=== PATIENT | female | born 2000 | race Caucasian/White ===

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

== ENCOUNTER 2019-02-07 11:26 | Emergency (ER) | payer OTHER ==
[2019-02-07 12:02] VITALS: BP 141/86
--- NOTE | 2019-02-07 12:18 | UC ---
Respiratory Complaint HPI - HPI Summary HPI Summary: Productive cough for 3 weeks, started as sinus symptoms. - History of Current Complaint Chief Complaint: UCRespiratory Stated Complaint: COUGH, Time Seen by Provider: 02/07/19 11:28 Hx Obtained From: Patient Hx Last Menstrual Period: 01/13/19 ?: No - Attempting to conceive Onset/Duration: Gradual Onset, Lasting Weeks Timing: Intermittent Episodes Severity Initially: Moderate Severity Currently: Mild Pain Intensity: 4 Character: Cough: Productive - yellow sputum Alleviating Factors: OTC Meds Associated Signs And Symptoms: Positive: Wheezing - History of asthma symptoms when ill, URI, Nasal Congestion, Sinus Discomfort - Allergies/Home Medications Allergies/Adverse Reactions: Allergies Allergy/AdvReac Type Severity Reaction Status Date / Time diphenhydramine Allergy See Comment Verified 02/07/19 12:02 ibuprofen Allergy See Comment Verified 02/07/19 12:02 ketorolac [From Toradol] Allergy Altered Verified 02/07/19 12:02 Mental Status morphine Allergy Hallucinati Verified 02/07/19 12:02 ons prednisone Allergy Altered Verified 02/07/19 12:02 Mental Status PMH/Surg Hx/FS Hx/Imm Hx Previously Healthy: Yes - Surgical History Surgical History: Yes Surgery Procedure, Year, and Place: right foot surgeryx2 2015. Endometriosis/cystx2. PARTIAL SALPINGECTOMY--LEFT - Family History Known Family History: Positive: Cardiac Disease, Hypertension, Diabetes, Non- Contributory - Social History Alcohol Use: None Substance Use Type: None Substance Use Comment - Amount & Last Used: STATES NON TODAY Smoking Status (MU): Light Every Day Tobacco Smoker Type: Cigarettes Amount Used/How Often: 4 cigarettes daily Length of Time of Smoking/Using Tobacco: Since Age 14 Have You Smoked in the Last Year: Yes Household Exposure Type: Cigarettes - Immunization History Most Recent Influenza Vaccination: no Most Recent Pneumonia Vaccination: never Vaccination Up to Date: Yes Review of Systems All Other Systems Reviewed And Are Negative: Yes ENT: Positive: Nasal Discharge - Post-nasal drainage. Sinus tenderness has improved, Sinus Congestion. Negative: Sinus Pain/Tenderness Respiratory: Positive: Cough - Occasionally productive of yellow/green sputum Motor: Positive: Negative Neurovascular: Positive: Negative Musculoskeletal: Positive: Negative Neurological: Positive: Negative Psychological: Positive: Negative Is Patient Immunocompromised?: No Physical Exam Triage Information Reviewed: Yes Appearance: Well-Appearing, No Pain Distress, Well-Nourished Vital Signs: Initial Vital Signs Temp 98.6 F 02/07/19 11:59 Pulse 89 02/07/19 11:59 Resp 16 02/07/19 11:59 BP 141/86 02/07/19 11:59 Pulse Ox 100 02/07/19 11:59 Vital Signs Reviewed: Yes Eyes: Positive: Conjunctiva Clear ENT: Positive: Hearing grossly normal, Pharynx normal, Nasal congestion - Thick yellow post-nasal drainage, yellow thick nasal coryza, sinuses non-tender, Nasal drainage, TMs normal, Uvula midline Neck: Positive: Supple, Nontender, No Lymphadenopathy Respiratory: Positive: Lungs clear, Normal breath sounds, No respiratory distress, No accessory muscle use Cardiovascular: Positive: RRR, No Murmur, Pulses Normal, Brisk Capillary Refill Musculoskeletal Exam: Normal Neurological Exam: Normal Psychological Exam: Normal Skin Exam: Normal Respiratory Course/Dx - Course Course Of Treatment: Pt comfortable here in no distress. - Differential Dx/Diagnosis Provider Diagnosis: Sinusitis Discharge ED - Sign-Out/Discharge Documenting (check all that apply): Patient Departure All imaging exams completed and their final reports reviewed: No Studies - Discharge Plan Condition: Good Disposition: HOME Prescriptions: Albuterol HFA INHALER* [Ventolin HFA Inhaler*] 2 puff INH Q4H PRN 5 Days #1 mdi PRN Reason: Wheezing Amoxicillin PO (*) [Amoxicillin 875 MG (*)] 875 mg PO BID 10 Days #20 tab Benzonatate CAP* [Tessalon 100 MG CAP*] 200 mg PO TID PRN #30 cap PRN Reason: Cough Patient Education Materials: Sinusitis (ED) Referrals: No Primary Care Phys,NOPCP [Primary Care Provider] - [facility] [Outside] Additional Instructions: Increase fluids, Use your inhaler 2 puffs every 4-6 hours as needed for tight cough or wheezing. Use the Benzonatate 1 or 2 caps every 8 hours as needed for cough. Follow up at [facility] if no improvement in 5-6 days. - Billing Disposition and Condition Condition: GOOD Disposition: Home
== END 2019-02-07 12:23 | disposition home or self-care (01) ==
LOC: UCEAST 11:26
DX: J32.9 Chronic sinusitis, unspecified (principal); F17.210 Nicotine dependence, cigarettes, uncomplicated; Z88.8 Allergy status to other drugs, medicaments and biological substances; Z88.5 Allergy status to narcotic agent; Z88.6 Allergy status to analgesic agent
CPT/HCPCS: 99212; G0463

== ENCOUNTER 2019-03-12 12:41 | Emergency (ER) | payer OTHER ==
[2019-03-12 12:59] VITALS: BP 143/95
--- NOTE | 2019-03-12 14:32 | UC ---
Hand/Wrist HPI - HPI Summary HPI Summary: CHIEF COMPLAINT and HPI: This is a 18-year-old female with a complaint of moderate right hand discomfort with numbness radiating from the hand to the right elbow consistent with a nerve impingement in the ulnar distribution. She states that this began last night and denies any trauma or pre-existing condition that can be used to explain this pain. Specifically, she denies neck trauma. The pain is variable with numbness, sometimes radiating up the arm and somewhat relieved by putting her hand up over her head. This right hand over the head position only alleviates the pain slightly. She does not state that sitting or standing up straight with the neck stretched vertically only slightly improves her symptoms. VITAL SIGNS & SaO2 REVIEWED. Within normal limits unless noted here. 143/95 NURSES NOTE REVIEWED. "pins and needles tingling started last pm with right arm " - History Of Current Complaint Chief Complaint: UCUpperExtremity Stated Complaint: ARM COMPLAINT Time Seen by Provider: 03/12/19 14:04 Hx Last Menstrual Period: 02/18/19 Pain Intensity: 6 - Allergies/Home Medications Allergies/Adverse Reactions: Allergies Allergy/AdvReac Type Severity Reaction Status Date / Time diphenhydramine Allergy See Comment Verified 03/12/19 12:59 ibuprofen Allergy See Comment Verified 03/12/19 12:59 ketorolac [From Toradol] Allergy Altered Verified 03/12/19 12:59 Mental Status morphine Allergy Hallucinati Verified 03/12/19 12:59 ons prednisone Allergy Altered Verified 03/12/19 12:59 Mental Status Home Medications: Home Medications Letrozole 1 tab PO DAILY 03/12/19 [History Confirmed 03/12/19] PMH/Surg Hx/FS Hx/Imm Hx - Additional Past Medical History Additional PMH: PAST MEDICAL HISTORY- CHRONIC and RECURRENT HEALTH PROBLEM LIST REVIEWED. Information relevant to present complaint: depression; anxiety. VISIT HISTORY REVIEWED. MEDICATIONS & ALLERGIES REVIEWED. Allergic to prednisone. HYPERTENSION STATUS: no medications. FAMILY HISTORY: Positive for: depression; ETOH disorder. SOCIAL HISTORY: Smoker: smoker Home: with fiance Employment: unemployed currently Previously Healthy: Yes - Surgical History Surgical History: Yes Surgery Procedure, Year, and Place: right foot surgeryx2 2015. Endometriosis/cystx2. PARTIAL SALPINGECTOMY--LEFT - Family History Known Family History: Positive: Cardiac Disease, Hypertension, Diabetes, Non- Contributory - Social History Alcohol Use: None Substance Use Type: None Substance Use Comment - Amount & Last Used: STATES NON TODAY Smoking Status (MU): Light Every Day Tobacco Smoker Type: Cigarettes Amount Used/How Often: 4 cigarettes daily Length of Time of Smoking/Using Tobacco: Since Age 14 Have You Smoked in the Last Year: Yes Household Exposure Type: Cigarettes - Immunization History Most Recent Influenza Vaccination: no Most Recent Pneumonia Vaccination: never Vaccination Up to Date: Yes Review of Systems All Other Systems Reviewed And Are Negative: Yes Constitutional: Positive: Negative Respiratory: Positive: Negative Cardiovascular: Positive: Negative Gastrointestinal: Positive: Negative Genitourinary: Positive: Negative Musculoskeletal: Positive: Myalgia - right hand Neurological: Positive: Paresthesia - right upper extremity to the elbow; ulnar distribution Is Patient Immunocompromised?: No Physical Exam - Summary Physical Exam Summary: Appearance: The patient is well-appearing, is in no pain or distress, and is well-nourished. 143/95 Eyes: Conjunctiva are clear. Pupils are equal and reactive to light and accommodation. Extra ocular muscle movement is intact. ENT: The hearing is grossly normal, the pharynx is normal, and the TMs are normal. There is no muffled or hoarse voice. No stridor. Neck: The neck is supple and there is no lymphadenopathy. Respiratory: The chest is non-tender to palpation and without crepitus. The lungs are clear, there are normal breath sounds, and there is no respiratory distress. No wheezes, rales or rhonchi. Cardiovascular: Heart sounds reveal a regular rate and rhythm. There are no clicks, rubs or murmurs. There are no carotid bruits or thrills. Circulation is grossly intact. Abdomen: The abdomen is soft and nontender. There is no organomegaly. Bowel sounds are present and within normal limits. No point tenderness at McBurneys point. No CVA tenderness. Musculoskeletal: Strength is intact. The patient moves all extremities. Neurological: The patient is alert. Motor and sensory are examination grossly intact. Speech is normal. Right hand is being held in the position of function. there is numbness along the ulnar distribution reaching themedial aspect of the right elbow. There is mild relief of pain when she puts her arm up overhead. Movement of her right arm behind her back causes pain. There is decreased abilityto make a fist in the right hand. Psychological: The patient displays age appropriate behavior, and is conversant. GCS=15. Skin: Negative for rashes. Triage Information Reviewed: Yes Vital Signs: Initial Vital Signs Temp 98 F 03/12/19 12:55 Pulse 88 03/12/19 12:55 Resp 20 03/12/19 12:55 BP 143/95 03/12/19 12:55 Pulse Ox 100 03/12/19 12:55 Hand/Wrist Course/Dx - Course Course Of Treatment: his is a 18-year-old female with a complaint of moderate right hand discomfort with numbness radiating from the hand to the right elbow consistent with a nerve impingement in the ulnar distribution. She states that this began last night and denies any trauma or pre-existing condition that can be used to explain this pain. Specifically, she denies neck trauma. The pain is variable with numbness, sometimes radiating up the arm and somewhat relieved by putting her hand up over her head. This right hand over the head position only alleviates the pain slightly. She does not state that sitting or standing up straight with the neck stretched vertically only slightly improves her symptoms. Right hand is being held in the position of function. there is numbness along the ulnar distribution reaching themedial aspect of the right elbow. There is mild relief of pain when she puts her arm up overhead. Movement of her right arm behind her back causes pain. There is decreased abilityto make a fist in the right hand. Dx is cubital compression. Patient is allergic to prednisone. She will use ibuprofen and begin physical therapy. - Differential Dx/Diagnosis Differential Diagnosis/HQI/PQRI: Carpal Tunnel Syndrome, Other - cubital tunnel syndrome cervical nerve impingement syndrome Provider Diagnosis: Cubital canal compression Discharge ED - Sign-Out/Discharge Documenting (check all that apply): Patient Departure All imaging exams completed and their final reports reviewed: No Studies - Discharge Plan Condition: Stable Disposition: HOME Patient Education Materials: Cubital Tunnel Syndrome (ED) Referrals: No Primary Care Phys,NOPCP [Primary Care Provider] - Additional Instructions: WE DISCUSSED: PLEASE SEEK CARE AT THE EMERGENCY DEPARTMENT IF SYMPTOMS WORSEN OR IF NEW SYMPTOMS DEVELOP. FOLLOW UP WITH YOUR PRIMARY CARE PHYSICIAN IF CONDITION CONTINUES BEYOND 3 DAYS WITHOUT IMPROVEMENT. YOUR DIAGNOSIS IS: pinched nerve at right elbow YOUR PRESCRIPTION RECOMMENDATION IS: none OTHER INSTRUCTIONS: TAKE IBUPROFEN, 600MG, 3-4 TIMES A DAY; SEE ATTACHED INSTRUCTIONS; START PHYSICAL THERAPY; USE SLING. RECHECK NEXT WEEK IF YOU ARE NOT IMPROVING; IF SUDDENLY WORSE WITH MORE DISABILITY OR PAIN, GO TO EMERGENCY DEPARTMENT FOR FURTHER EVALUATION. Hypertension Discharge Instructions: Your blood pressure reading today was 143/95, indicating HYPERTENSION. Follow- up with your primary care provider within 4 weeks for blood pressure check and appropriate recommendations and treatment, as needed. FOR PAIN AND/OR SLEEP: For pain: Ibuprofen (Motrin and other brand names) 400-600mg PLUS acetaminophen (Tylenol and other brand names) 500mg - 1000mg every 8 hours. PHYSICAL THERAPY REFERRAL: This is your referral to a physical therapist. The physical therapy (PT) will help you recover. After an injury, PT can reduce swelling and pain. In recovery, PT is used to restore mobility and strength. Your specific treatment goals are: +++Reduction of Swelling (EGS, US, ice as needed) +++Pain Reduction (EGS, US, ice as needed) +++Shinto of Mobility -Your diagnosis is: NERVE IMPINGEMENT RIGHT UPPER EXTREMITY-ULNAR DISTRIBUTION -Duration of therapy: two weeks or until resolution of condition. -Your physician re-evaluation needs to be arranged by you. - Billing Disposition and Condition Condition: STABLE Disposition: Home
== END 2019-03-12 14:40 | disposition home or self-care (01) ==
LOC: UCEAST 12:41
DX: M25.821 Other specified joint disorders, right elbow (principal); R20.0 Anesthesia of skin; F17.210 Nicotine dependence, cigarettes, uncomplicated; Z88.5 Allergy status to narcotic agent; Z88.8 Allergy status to other drugs, medicaments and biological substances
CPT/HCPCS: 99212; G0463

== ENCOUNTER 2019-03-16 15:10 | Emergency (ER) | payer OTHER ==
[2019-03-16 15:24] VITALS: BP 131/82
--- NOTE | 2019-03-16 16:15 | UC ---
Upper Extremity HPI - HPI Summary HPI Summary: 18 year old female with no PMH presents with right hand numbness, pain. THe patient was seen 03/12, diagnosed with cubital tunnel syndrome, prescribed PT. She has appt on for PT, however since has had increased pain and worsening of symptoms. Patient states she is not able to move her pinky finger anymore and has increased pain when doing so. Now has pain with moving neck. Denies trauma. Unable to take prednisone. Has been taking Motrin consistently. - History of Current Complaint Chief Complaint: UCUpperExtremity Stated Complaint: RECHECK ARM PAIN Time Seen by Provider: 03/16/19 15:54 Hx Obtained From: Patient Hx Last Menstrual Period: vov 20 Onset/Duration: Sudden Onset, Lasting Days Severity Initially: Mild Severity Currently: Severe Pain Intensity: 8 Pain Scale Used: 0-10 Numeric Location Of Pain: Is Discrete @ - right fingers 5, 4. Character: Sharp, Aching, Throbbing, Spasmodic Aggravating Factor(s): Movement, Lifting, Flexion, Extension Alleviating Factor(s): Rest Associated Signs And Symptoms: Positive: Weakness, Numbness/Tingling. Negative : Swelling, Redness, Bruising, Fever - Allergies/Home Medications Allergies/Adverse Reactions: Allergies Allergy/AdvReac Type Severity Reaction Status Date / Time diphenhydramine Allergy See Comment Verified 03/16/19 15:25 ibuprofen Allergy See Comment Verified 03/16/19 15:25 ketorolac [From Toradol] Allergy Altered Verified 03/16/19 15:25 Mental Status morphine Allergy Hallucinati Verified 03/16/19 15:25 ons prednisone Allergy Altered Verified 03/16/19 15:25 Mental Status PMH/Surg Hx/FS Hx/Imm Hx Previously Healthy: Yes - Surgical History Surgical History: Yes Surgery Procedure, Year, and Place: right foot surgeryx2 2015. Endometriosis/cystx2. PARTIAL SALPINGECTOMY--LEFT - Family History Known Family History: Positive: Cardiac Disease, Hypertension, Diabetes, Non- Contributory - Social History Alcohol Use: None Substance Use Type: None Substance Use Comment - Amount & Last Used: STATES NON TODAY Smoking Status (MU): Light Every Day Tobacco Smoker Type: Cigarettes Amount Used/How Often: 4 cigarettes daily Length of Time of Smoking/Using Tobacco: Since Age 14 Have You Smoked in the Last Year: Yes Household Exposure Type: Cigarettes - Immunization History Most Recent Influenza Vaccination: no Most Recent Pneumonia Vaccination: never Vaccination Up to Date: Yes Review of Systems All Other Systems Reviewed And Are Negative: Yes Constitutional: Positive: Negative Motor: Positive: Weakness Neurovascular: Positive: Decreased Sensation Musculoskeletal: Positive: Arthralgia, Myalgia Neurological: Positive: Weakness, Paresthesia, Numbness Is Patient Immunocompromised?: No Physical Exam Triage Information Reviewed: Yes Appearance: Well-Appearing, Well-Nourished, Pain Distress - mild Vital Signs: Initial Vital Signs Temp 97.7 F 03/16/19 15:21 Pulse 77 03/16/19 15:21 Resp 18 03/16/19 15:21 BP 131/82 03/16/19 15:21 Pulse Ox 100 03/16/19 15:21 Vital Signs Reviewed: Yes Eyes: Positive: Conjunctiva Clear ENT: Positive: Hearing grossly normal Neck: Positive: Supple, No Lymphadenopathy, Tenderness @ - paraspinal, right sided., Other: - + spurling on right reproducing symptoms with radiating pain down right arm into 4, 5th finger.. Negative: Nuchal Rigidity, Enlarged Nodes @ Musculoskeletal: Positive: Other: - + supraspinatus testing causing R sided cerivcal pain R Shoulder ROM decreased due to pain, ~ 60FF, 40abd. PROM elbow full, decreased strength against resistence due to pain. TTP over cutibal tunnel, throughout forearm. R 5th finger with greatly diminished flexion/ extension, 1/5. cap refill < 2 seconds. rad/ unlar pulses 2+. decreased SITLT. 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 4th finger with strength flex/ ext 3/ 5. all 5/5 on L. Neurological: Positive: Other: - SITLT to Psychological Exam: Normal Psychological: Positive: Normal Response To Family Skin Exam: Normal - no wounds, sores. Upper Extremity Course/Dx - Course Course Of Treatment: Neuropathy with new onset weakness- No CT available here. Discussed with patient that further imaging was warrented to r/u diseases such as MS, impingement. - GO to ER for further evaluation and imaging. Due to loss of use of 5th finger over several days, further imaging is warranted. - Differential Dx/Diagnosis Differential Diagnosis/HQI/PQRI: Strain, Sprain Provider Diagnosis: Weakness Discharge ED - Sign-Out/Discharge Documenting (check all that apply): Patient Departure All imaging exams completed and their final reports reviewed: No Studies - Discharge Plan Condition: Fair Disposition: HOME-RECOMMEND TO ED Patient Education Materials: Peripheral Neuropathy (ED), Cervical Radiculopathy (ED) Referrals: No Primary Care Phys,NOPCP [Primary Care Provider] - [facility] [Outside] Additional Instructions: - GO to ER for further evaluation and imaging. Due to loss of use of 5th finger over several days, further imaging is warranted. - Billing Disposition and Condition Condition: FAIR Disposition: Home-Recommend to ED - Attestation Statements Provider Attestation: Per institutional requirements, I have reviewed the chart, however, I was not consulted specifically or made aware of this patient by the midlevel provider. I did not personally evaluate, interact with , or disposition this patient.
== END 2019-03-16 16:18 | disposition home health service (06) ==
LOC: UCEAST 15:10
DX: R53.1 Weakness (principal); M79.641 Pain in right hand; F17.210 Nicotine dependence, cigarettes, uncomplicated; G56.21 Lesion of ulnar nerve, right upper limb; Z88.8 Allergy status to other drugs, medicaments and biological substances; Z88.6 Allergy status to analgesic agent; Z88.5 Allergy status to narcotic agent
CPT/HCPCS: 99212; G0463

== ENCOUNTER 2019-03-19 18:39 | Emergency (ER) | payer OTHER ==
--- NOTE | 2019-03-19 21:20 | ED ---
Upper Extremity Pain - HPI Summary HPI Summary: 18-year-old female with no significant past medical history presents to the emergency department today complaining of right arm pain and numbness in the ulnar nerve distribution. She [facility] , [facility] for the same issue and her pain is not improving. She states her pain is 10 out of 10 "burning pain"which goes from her right shoulder down her arm into her right hand. She states she has weakness in her right hand and limited motor function. She's been taking Tylenol for pain and wearing a sling [facility] at [facility]. She denies fever, chest pain, abdominal pain And urination, rash. Family history and social history noncontributory. - History of Current Complaint Chief Complaint: EDExtremityUpper Stated Complaint: ELBOW PAIN PER PT Time Seen by Provider: 03/19/19 20:23 Hx Obtained From: Patient Hx Last Menstrual Period: vov 20 Mechanism Of Injury: Unknown Onset/Duration: Started Weeks Ago Timing: Constant Severity Initially: Mild Severity Currently: Moderate Pain Location: Arm, Elbow, Forearm, Wrist, Hand Character: Burning Aggravating Factor(s): Movement, Lifting, Flexion, Extension, Internal/External Rotation, Abduction, Adduction Alleviating Factor(s): Nothing Associated Signs & Symptoms: Positive: Weakness, Numbness/Tingling. Negative: Swelling, Redness, Bruising, Fever, Chest Pain, Neck Pain, Nausea, Vomiting - Allergies/Home Medications Allergies/Adverse Reactions: Allergies Allergy/AdvReac Type Severity Reaction Status Date / Time diphenhydramine Allergy See Comment Verified 03/19/19 18:46 ibuprofen Allergy See Comment Verified 03/19/19 18:46 ketorolac [From Toradol] Allergy Altered Verified 03/19/19 18:46 Mental Status morphine Allergy Hallucinati Verified 03/19/19 18:46 ons prednisone Allergy Altered Verified 03/19/19 18:46 Mental Status PMH/Surg Hx/FS Hx/Imm Hx Endocrine/Hematology History: Denies: Hx Diabetes, Hx Thyroid Disease Cardiovascular History: Denies: Hx Hypertension Respiratory History: Reports: Hx Asthma - only uses inhalers when has URI Denies: Hx Chronic Obstructive Pulmonary Disease (COPD) GI History: Denies: Hx Ulcer History: Denies: Hx Renal Disease Sensory History: Reports: Hx Contacts or Glasses - wears glasses Denies: Hx Hearing Aid Opthamlomology History: Reports: Hx Contacts or Glasses - wears glasses Neurological History: Reports: Other Neuro Impairments/Disorders - PT HAS HX OF SUICIDAL IDEATION, SELF HARM, CANNIBUS ABUSE, Psychiatric History: Reports: Hx Anxiety, Hx Depression, Hx Inpatient Treatment , Hx Community Mental Health Tx, Hx of Violent Episodes Against Others Denies: Hx Eating Disorder - Surgical History Surgery Procedure, Year, and Place: right foot surgeryx2 2015. Endometriosis/cystx2. PARTIAL SALPINGECTOMY--LEFT Hx Anesthesia Reactions: No Infectious Disease History: No Infectious Disease History: Denies: Hx Clostridium Difficile, Hx Hepatitis, Hx Human Immunodeficiency Virus (HIV), Hx of Known/Suspected MRSA, Hx Shingles, Hx Tuberculosis, Hx Known/ Suspected VRE, Hx Known/Suspected VRSA, History Other Infectious Disease, Traveled Outside the in Last 30 Days - Family History Known Family History: Positive: Cardiac Disease, Hypertension, Diabetes, Non- Contributory - Social History Alcohol Use: None Substance Use Type: Reports: None Substance Use Comment - Amount & Last Used: STATES NON TODAY Smoking Status (MU): Light Every Day Tobacco Smoker Type: Cigarettes Amount Used/How Often: 4 cigarettes daily Length of Time of Smoking/Using Tobacco: Since Age 14 Have You Smoked in the Last Year: Yes Review of Systems Constitutional: Negative Eyes: Negative ENT: Negative Cardiovascular: Negative Respiratory: Negative Gastrointestinal: Negative Genitourinary: Negative Positive: Arthralgia, Myalgia. Negative: Decreased ROM Skin: Negative Neurological: Negative Psychological: Normal All Other Systems Reviewed And Are Negative: Yes Physical Exam - Summary Physical Exam Summary: Inspection reveals no ecchymosis, edema, erythema. Patient has 2+ radial pulse bilaterally. Patient has full range of motion however decreased strength in the right upper extremity. Patient has decreased sensation to light touch in the ulnar nerve distribution of the hand. Patient complains of significant pain with palpation of the cubital tunnel. Positive Tinel's test Triage Information Reviewed: Yes Vital Signs On Initial Exam: Initial Vitals Temp Pulse Resp BP Pulse Ox 99.6 F 104 19 134/111 99 03/19/19 18:41 03/19/19 18:41 03/19/19 18:41 03/19/19 18:41 03/19/19 18:41 Vital Signs Reviewed: Yes Appearance: Positive: Well-Appearing, No Pain Distress, Well-Nourished Skin: Positive: Warm, Skin Color Reflects Adequate Perfusion Eyes: Positive: EOMI, MIGUEL ANGEL ENT: Positive: Hearing grossly normal Respiratory/Lung Sounds: Positive: Clear to Auscultation, Breath Sounds Present Cardiovascular: Positive: RRR, S1, S2 Abdomen Description: Positive: Nontender, Soft Bowel Sounds: Positive: Present Neurological: Positive: Alert, Oriented to Person Place, Time, Normal Gait, Speech Normal Psychiatric: Positive: Normal Procedures - Sedation Patient Received Moderate/Deep Sedation with Procedure: No - Splinting Right Upper Extremity Pre-Made Type: velcro Splint: volar Pre-Proc Neuro Vasc Exam: abnormal Post-Proc Neuro Vasc Exam: abnormal, unchanged from pre-exam Splint Applied by Provider: [facility] - Vital Signs Vital Signs Temp Pulse Resp BP Pulse Ox 03/19/19 18:41 99.6 F 104 19 134/111 99 - Laboratory Lab Statement: Any lab studies that have been ordered have been reviewed, and results considered in the medical decision making process. Course/Dx - Course Course Of Treatment: Patient was seen and examined. Vitals noted. Physical examination is consistent with cubital tunnel syndrome. Patient was given a volar splint and given instructions to alleviate her symptoms. She was told to follow up with orthopedics for further evaluation and management. - Diagnoses Differential Diagnosis/HQI/PQRI: Positive: Arthritis, Contusion, Strain, Sprain Provider Diagnoses: Cubital tunnel syndrome Discharge ED - Sign-Out/Discharge Documenting (check all that apply): Patient Departure - Discharge Plan Condition: Stable Disposition: HOME Patient Education Materials: Cubital Tunnel Syndrome (ED) Referrals: Eros Hector MD [Medical Doctor] - 3 Days No Primary Care Phys,NOPCP [Primary Care Provider] - Additional Instructions: You were seen in the emergency department and diagnosed with cubital tunnel syndrome in the right arm. Please take Tylenol as needed for inflammation and pain and wear your brace given to you in the emergency department throughout the day as well as sleeping. It is also important to wrap a towel around your elbow while sleeping to ensure that it does not bend. Please follow-up with an orthopedic doctor in 3-5 days for further evaluation and management of your symptoms. Please return to the emergency department immediately if you develop any new or worsening symptoms. You may also apply heat to the area as well as stretches for alleviation of your symptoms. YouTube: Cubital tunnel nerve glides (stretching techniques) - Billing Disposition and Condition Condition: STABLE Disposition: Home
[2019-03-19 22:13] VITALS: BP 137/93
== END 2019-03-19 22:13 | disposition home or self-care (01) ==
LOC: ED 18:39
DX: G56.21 Lesion of ulnar nerve, right upper limb (principal); F41.9 Anxiety disorder, unspecified; F32.9 Major depressive disorder, single episode, unspecified; F17.210 Nicotine dependence, cigarettes, uncomplicated; Z88.6 Allergy status to analgesic agent; Z88.5 Allergy status to narcotic agent; Z88.8 Allergy status to other drugs, medicaments and biological substances
CPT/HCPCS: 99281

== ENCOUNTER 2019-05-12 18:26 | Emergency (ER) | payer SELFPAY ==
--- NOTE | 2019-05-12 19:54 | UC ---
Abdominal Pain Female HPI - HPI Summary HPI Summary: Pt presents to with low abdominal pain. Pt states she is 8 weeks and has know left ovarian cyst. Pt states she has had some increased pain in this region early today - states contact Dr. Ford's office and advised to come to for imaging. sTates pain has improve.d no analgesia taken. No vaginal discharge, loss of fluid, dysuria, hematuria. No n/v Medications as entered in EMR by jig operator reviewed. Pt states has had an ultrasound this + IUP - History of Current Complaint Chief Complaint: UCGeneralIllness Stated Complaint: SIDE PAIN Time Seen by Provider: 05/12/19 19:42 Hx Obtained From: Patient Hx Last Menstrual Period: 7 weeks Pain Intensity: 6 Allergies/Adverse Reactions: Allergies Allergy/AdvReac Type Severity Reaction Status Date / Time ketorolac [From Toradol] Allergy Hives Verified 05/12/19 18:47 morphine Allergy Hives Verified 05/12/19 18:47 prednisone Allergy Insomnia Verified 05/12/19 18:47 PMH/Surg Hx/FS Hx/Imm Hx Previously Healthy: Yes - Surgical History Surgical History: Yes Surgery Procedure, Year, and Place: right foot surgeryx2 2015. Endometriosis/cystx2. PARTIAL SALPINGECTOMY--LEFT - Family History Known Family History: Positive: Cardiac Disease, Hypertension, Diabetes, Non- Contributory - Social History Occupation: Employed Part-time Lives: With Family Alcohol Use: None Substance Use Type: None Substance Use Comment - Amount & Last Used: STATES NON TODAY Smoking Status (MU): Never Smoked Tobacco Type: Cigarettes Amount Used/How Often: 1 cig per day Length of Time of Smoking/Using Tobacco: Since Age 14 Have You Smoked in the Last Year: Yes Household Exposure Type: Cigarettes - Immunization History Most Recent Influenza Vaccination: no Most Recent Pneumonia Vaccination: never Vaccination Up to Date: Yes Review of Systems All Other Systems Reviewed And Are Negative: Yes Constitutional: Positive: Negative Skin: Positive: Negative Eyes: Positive: Negative ENT: Positive: Negative Respiratory: Positive: Negative Cardiovascular: Positive: Negative Gastrointestinal: Positive: Abdominal Pain Genitourinary: Positive: Negative Motor: Positive: Negative Physical Exam - Summary Physical Exam Summary: Vital Signs Reviewed: Yes A+Ox3, no distress Eyes: Conjunctiva Clear, ENT: Hearing grossly normal mmoist Neck: Positive: Supple Respiratory: Positive: No respiratory distress, No accessory muscle use + CTA throughout no w/r Cardiovascular: RRR nl s1, s2 no m/r CBT <2 sec abd soft + BS nt/nd no guarding, no distension no CVA no pain with palp Musculoskeletal Exam: MATTHEW x 4 without difficulty Strength Intact, ROM Intact Neurological: Positive: Alert, + sensation throughout Psychological: Positive: Normal Response To backend tester Skin: Positive: no rash, no ecchymosis Triage Information Reviewed: Yes Vital Signs: Initial Vital Signs Temp 98.5 F 05/12/19 18:40 Pulse 91 05/12/19 18:40 Resp 16 05/12/19 18:40 BP 127/67 05/12/19 18:40 Pulse Ox 100 05/12/19 18:40 Diagnostics - Radiology No standard instances Radiology Interpretation Completed By: Radiologist - Patient Name: JOY REED Medical Record#: [id number] Ordering Physician: Kika Cornejo MD Acct.#: [id number] : 2000 Age: 18 Sex: F Location: [facility] Exam Date: 05/12/191945 ADM Status: REG ER Order Information: US PREG TRANSVAGINAL Accession Number: [id number] CPT: 50118 PROCEDURE INFORMATION: Exam: US , Transvaginal Exam date and time: 05/12/2019 8:21 PM Age: 18 years old Clinical indication: complicated by abdominal or pelvic pain; Left lower quadrant; First trimester; Gestational age or lmp: 8w2d; ; Additional info: 8 weeks preg, left lower abdominal pain TECHNIQUE: Imaging protocol: Real-time transvaginal obstetrical ultrasound of the maternal pelvis and a first trimester with image documentation. Transvaginal imaging was used for better evaluation of the fetus and adnexa. COMPARISON: PEL/ TRANS US PELVIS/TRANSVAG 04/30/2019 4:12 PM FINDINGS: Other findings: Normal Doppler flow of the ovaries. GESTATION: Gestation: Intrauterine gestation. Heart rate: Embryonic heart rate 172 bpm. Placenta: No visible subchorionic hemorrhage. BIOMETRY: Estimated gestational age: There is a single living intrauterine of sonographic gestational age 9 weeks 0 days, DIEGO December 15, 2019. MATERNAL: Left adnexa: There are 2 left ovarian cysts, a hypoechoic complex appearing cyst measuring a maximum of 3.1 cm that also previously measured 3.1 cm and a 2nd simple appearing cyst measuring 3.3 cm and previously measured a maximum of 3.7 cm. IMPRESSION: 1. There is a single living intrauterine of sonographic gestational age 9 weeks 0 days, DIEGO December 15, 2019. 2. No visible subchorionic hemorrhage. 3. There are 2 left ovarian cysts, a hypoechoic complex appearing cyst measuring a maximum of 3.1 cm that also previously measured 3.1 cm and a 2nd simple appearing cyst measuring 3.3 cm and previously measured a maximum of 3.7 cm. Dictated and Authenticated by: Kerwin Steele MD 05/12/2019 9:29 PM Eastern Time ([place] and [place]) To contact [facility] with a general question: Operations Center - [phone] For direct physician to physician contact: Physician Hotline - [phone] [facility] ([facility] Facility ID #[id number]) This report is only to be considered final once signed by the Provider(s) as displayed in the "<Electronically Signed by >" field (s). Absence of a signature indicates the report is in a draft status and still needs to be finalized. In the event this document was created by someone other than the signing Provider, the individual initiating the document will be listed in the "Entered by:" or "Dictated by:" ann. 1 of 2 Re-Evaluation - Re-Evaluation First Eval Comment: Pt needs to leave with her ride. reviewed prelim tech report - awaiting [facility]AD. Pt will call 911 to go to ED if concering findings in UC. I will call with report. strict return precautions discussed. Abd Pain Female Course/Dx - Course Course Of Treatment: Pt states 8 week - earlier today LLQ pain, low pelvic - improved without analgesia h/o cysts - states feels same Pt has had IUP proven by us VSS non concernig exam will check ultraound - pt reports sent by OB office - Differential Dx/Diagnosis Provider Diagnosis: Left ovarian cyst, First trimester Discharge ED - Sign-Out/Discharge Documenting (check all that apply): Patient Departure All imaging exams completed and their final reports reviewed: No - Discharge Plan Condition: Stable Disposition: HOME Patient Education Materials: (ED), Ovarian Cyst (ED) Referrals: Juan Ramon Ford MD [Medical Doctor] - Additional Instructions: - stay well hydrated. drink plenty of non-alcoholic, non-caffinated beverages - eat and drink regular, healthy meals - take daily vitamins - Okay to take Tylenol every 6 hours for pain - Contact your OB doctor to schedule a follow-up appointment. If your pain increases, vomitig, vaginal bleeding or other concerns it is recommended you go to the emergency department for further evaluation and treatment DISCUSSED - YOU ARE LEAVING BEFORE YOUR ULTRASOUND REPORT IS READ BY THE RADIOLOGIST - A CARE STITCH BONDER MACHINE OPERATOR HELPER WILL CALL YOU TONIGHT WITH YOUR REPORT. YOU MAY BE DIRECTED TO THE EMERGENCY DEPARTMENT IF YOUR REPORT NOTES ANY CONCERNING FINDINGS - Billing Disposition and Condition Condition: STABLE Disposition: Home
[2019-05-12 21:03] VITALS: BP 115/62
--- NOTE | 2019-05-13 19:46 | UC ---
- Progress Note Progress Note: Patient Name: JOY REED Medical Record#: [id number] Ordering Physician: Kika Cornejo MD Acct.#: [id number] : 2000 Age: 18 Sex: F Location: [facility] Exam Date: 05/12/191945 ADM Status: REG ER Order Information: US PREG TRANSVAGINAL Accession Number: [id number] CPT: 70763 PROCEDURE INFORMATION: Exam: US , Transvaginal Exam date and time: 05/12/2019 8:21 PM Age: 18 years old Clinical indication: complicated by abdominal or pelvic pain; Left lower quadrant; First trimester; Gestational age or lmp: 8w2d; ; Additional info: 8 weeks preg, left lower abdominal pain TECHNIQUE: Imaging protocol: Real-time transvaginal obstetrical ultrasound of the maternal pelvis and a first trimester with image documentation. Transvaginal imaging was used for better evaluation of the fetus and adnexa. COMPARISON: PEL/TRANS US PELVIS/TRANSVAG 04/30/2019 4:12 PM FINDINGS: Other findings: Normal Doppler flow of the ovaries. GESTATION: Gestation: Intrauterine gestation. Heart rate: Embryonic heart rate 172 bpm. Placenta: No visible subchorionic hemorrhage. BIOMETRY: Estimated gestational age: There is a single living intrauterine of sonographic gestational age 9 weeks 0 days, DIEGO December 15, 2019. MATERNAL: Left adnexa: There are 2 left ovarian cysts, a hypoechoic complex appearing cyst measuring a maximum of 3.1 cm that also previously measured 3.1 cm and a 2nd simple appearing cyst measuring 3.3 cm and previously measured a maximum of 3.7 cm. IMPRESSION: 1. There is a single living intrauterine of sonographic gestational age 9 weeks 0 days, DIEGO December 15, 2019. 2. No visible subchorionic hemorrhage. 3. There are 2 left ovarian cysts, a hypoechoic complex appearing cyst measuring a maximum of 3.1 cm that also previously measured 3.1 cm and a 2nd simple appearing cyst measuring 3.3 cm and previously measured a maximum of 3.7 cm. Dictated and Authenticated by: Kerwin Steele MD 05/12/2019 9:29 PM Eastern Time ([place] and [place]) To contact [facility] with a general question: [facility] - [phone] For direct physician to physician contact: Physician Hotline - [phone] [facility] ([facility] Facility ID #[id number]) This report is only to be considered final once signed by the Provider(s) as displayed in the "<Electronically Signed by >" field (s). Absence of a signature indicates the report is in a draft status and still needs to be finalized. In the event this document was created by someone other than the signing Provider, the individual initiating the document will be listed in the "Entered by:" or "Dictated by:" ann. 1 of 2 Called pt - no change in treatment, management return precautions discussed called pt at 9:16pm 05/12/19 Course/Dx - Diagnoses Provider Diagnoses: Left ovarian cyst, First trimester Discharge ED - Sign-Out/Discharge Documenting (check all that apply): Post-Discharge Follow Up All imaging exams completed and their final reports reviewed: Yes - Discharge Plan Condition: Stable Disposition: HOME Patient Education Materials: (ED), Ovarian Cyst (ED) Referrals: Juan Ramon Ford MD [Medical Doctor] - Additional Instructions: - stay well hydrated. drink plenty of non-alcoholic, non-caffinated beverages - eat and drink regular, healthy meals - take daily vitamins - Okay to take Tylenol every 6 hours for pain - Contact your OB doctor to schedule a follow-up appointment. If your pain increases, vomitig, vaginal bleeding or other concerns it is recommended you go to the emergency department for further evaluation and treatment DISCUSSED - YOU ARE LEAVING BEFORE YOUR ULTRASOUND REPORT IS READ BY THE RADIOLOGIST - A CARE RETAIL MARKETING COORDINATOR WILL CALL YOU TONIGHT WITH YOUR REPORT. YOU MAY BE DIRECTED TO THE EMERGENCY DEPARTMENT IF YOUR REPORT NOTES ANY CONCERNING FINDINGS - Billing Disposition and Condition Condition: STABLE Disposition: Home
== END 2019-05-12 21:32 | disposition home or self-care (01) ==
LOC: UCEAST 18:26
DX: O34.81 Maternal care for other abnormalities of pelvic organs, first trimester (principal); N83.202 Unspecified ovarian cyst, left side; Z3A.08 8 weeks gestation of pregnancy; Z88.5 Allergy status to narcotic agent; Z88.6 Allergy status to analgesic agent
CPT/HCPCS: 76817; 81003; 84702; 99211; G0463

== ENCOUNTER 2019-05-28 17:20 | Emergency (ER) | payer SELFPAY ==
[2019-05-28 17:39] VITALS: BP 146/71
--- NOTE | 2019-05-28 17:50 | UC ---
Complaint Female HPI - HPI Summary HPI Summary: 18 yo presents with lower abdominal cramping and urinary symptoms. Reviewed past hx: has intrauterine with ovarian left ovarian cysts on ultrasound scan. Last scan on 05/12/19 showed 2 cysts, one 3/1 cm size unchanged and one 3/3 c, decreased from 3.7 cm. She has pain in the LLQ without radiation, and a burning sensation in the suprapubic area. Normal stool passed today. She is concerned due to past miscarriages and enalrging cysts. - History Of Current Complaint Chief Complaint: UCAbdominalPain Stated Complaint: ABDOMINAL COMPLAINT Time Seen by Provider: 05/28/19 17:49 Hx Obtained From: Patient Hx Last Menstrual Period: 7 weeks Onset/Duration: Gradual Onset, Lasting Weeks, Worse Since - past 2 to 3 days Timing: Intermittent, Lasting Hours Severity Initially: Mild Severity Currently: Mild Pain Intensity: 4 Character: Cramping Aggravating Factor(s): Nothing Alleviating Factor(s): Nothing Associated Signs And Symptoms: Negative: Vaginal Bleeding/Discharge, Vaginal Discharge, Nausea - Allergies/Home Medications Allergies/Adverse Reactions: Allergies Allergy/AdvReac Type Severity Reaction Status Date / Time ketorolac [From Toradol] Allergy Hives Verified 05/28/19 17:39 morphine Allergy Hives Verified 05/28/19 17:39 prednisone Allergy Insomnia Verified 05/28/19 17:39 Home Medications: Home Medications Vitamin TAB* 1 tab PO DAILY 04/30/19 [History Confirmed 05/28/19] PMH/Surg Hx/FS Hx/Imm Hx GI/ History: Other - hx of endometriosus and ovarian cysts - Surgical History Surgical History: Yes Surgery Procedure, Year, and Place: right foot surgeryx2 2015. Endometriosis/cystx2. PARTIAL SALPINGECTOMY--LEFT - Family History Known Family History: Positive: Cardiac Disease, Hypertension, Diabetes - Social History Occupation: Unemployed Lives: With Family Alcohol Use: None Substance Use Type: None Substance Use Comment - Amount & Last Used: STATES NON TODAY Smoking Status (MU): Former Smoker Type: Cigarettes Amount Used/How Often: 1 cig per day Length of Time of Smoking/Using Tobacco: Since Age 14 Have You Smoked in the Last Year: Yes Household Exposure Type: Cigarettes - Immunization History Most Recent Influenza Vaccination: no Most Recent Pneumonia Vaccination: never Vaccination Up to Date: Yes Review of Systems All Other Systems Reviewed And Are Negative: Yes Constitutional: Positive: Negative Skin: Positive: Negative Eyes: Positive: Negative ENT: Positive: Negative Respiratory: Positive: Negative Cardiovascular: Positive: Negative Genitourinary: Positive: Frequency, Other - suprapubic burning Motor: Positive: Negative Neurovascular: Positive: Negative Musculoskeletal: Positive: Negative Neurological/Mental Status: Positive: Negative Psychological: Positive: Negative Is Patient Immunocompromised?: No Physical Exam Triage Information Reviewed: Yes Appearance: Well-Appearing, Pain Distress - minimal, Other: - reviewed that she is feeling anxious about the health of the . Vital Signs: Initial Vital Signs Temp 98.7 F 05/28/19 17:35 Pulse 95 05/28/19 17:35 Resp 16 05/28/19 17:35 BP 146/71 05/28/19 17:35 Pulse Ox 100 05/28/19 17:35 Eye Exam: Normal ENT: Positive: Pharynx normal Neck: Positive: Supple, Nontender, No Lymphadenopathy Respiratory: Positive: Lungs clear, Normal breath sounds, No respiratory distress Cardiovascular: Positive: RRR, No Murmur, Pulses Normal Abdomen Description: Positive: No Organomegaly, Soft, Other: - mild tenderness in the LLQ without guarding or rebound. Bowel Sounds: Positive: Present Musculoskeletal Exam: Normal Neurological Exam: Normal Psychological Exam: Other - anxious Skin Exam: Normal Complaint Female Dx - Course Course Of Treatment: Dsicussed that ovarian cysts can cause discomfort, but clinical exam today is not suggestive of torsion or enlargement. - Differential Dx/Diagnosis Differential Diagnosis/HQI/PQRI: Ovarian Cyst, Ovarian Torsion, , Urinary Tract Infection Provider Diagnosis: Ovarian cyst - Physician Notifications Discussed Patient Care With: Freddie Jarquin - Discussed indication for USS; if exam benign, ok to not repeat USS tonight. Time Discussed With Above Provider: 18:10 Discharge ED - Sign-Out/Discharge Documenting (check all that apply): Patient Departure All imaging exams completed and their final reports reviewed: No Studies - Discharge Plan Condition: Stable Disposition: HOME Patient Education Materials: Ovarian Cyst (ED) Referrals: No Primary Care Phys,NOPCP [Primary Care Provider] - Additional Instructions: Continued mild cramping related to the ovarian cyst is to be expected, and tonight's exam does not suggest that you have had rupture of the cyst or twisting of the ovary. Urine culture will be sent and you will be called if an antibiotic is needed. Follow up with Dr. Ford as arranged for next week. If you have increasing severity of pain, please go to the emergency room for evaluation. - Billing Disposition and Condition Condition: STABLE Disposition: Home
== END 2019-05-28 18:39 | disposition home or self-care (01) ==
LOC: UCEAST 17:20
DX: O34.81 Maternal care for other abnormalities of pelvic organs, first trimester (principal); N83.209 Unspecified ovarian cyst, unspecified side; Z3A.01 Less than 8 weeks gestation of pregnancy; Z87.891 Personal history of nicotine dependence; Z88.6 Allergy status to analgesic agent; Z88.5 Allergy status to narcotic agent; Z88.8 Allergy status to other drugs, medicaments and biological substances
CPT/HCPCS: 81003; 87086; 99211; G0463

== ENCOUNTER 2019-05-31 23:35 | Emergency (ER) | payer SELFPAY ==
[2019-05-31 23:56] LABS: Urine Appearance Cloudy; Urine Bilirubin Negative (Negative); Urine Blood Negative (Negative); Urine Color Yellow; Urine Glucose Negative (Negative); Urine Ketones Negative (Negative); Urine Nitrite Negative (Negative); Urine Protein Negative (Negative); Urine Specific Gravity 1.009 (1.010-1.030); Urine Urobilinogen Negative (Negative)
[2019-05-31 23:58] LABS: Urine Bacteria Absent (Absent); Urine Red Blood Cell Trace(0-2/hpf) (Absent); Urine Squamous Epithelial Cell Present (Absent); Urine White Blood Cell Trace(0-5/hpf) (Absent)
--- NOTE | 2019-05-31 23:58 | ED ---
Abdominal Pain/Female - HPI Summary HPI Summary: Patient is a 18 y/o F presenting to [facility] accompanied by family with cc of LLQ and RLQ pain onset around 1999 tonight. She has a history of L ovarian cysts last seen on US 05/21/2019, and she is currently 13 weeks . A3, with miscarriages at around 12-14 weeks gravid. For the last few days she has been experiencing low L back pain and intermittent LLQ pain. Tonight, the pain worsened as it fluctuates with sharp pains between the R and L lower quadrants, greater on L with worsening since onset. She denies any vaginal bleeding or burning with urination. Symptoms rated 7/10 in severity. 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 PMHx: endometriosis, PCOS. Former smoker, no EtOH, no substance use. Medications reviewed. Allergies noted. - History of Current Complaint Chief Complaint: EDAbdPain Stated Complaint: ABD PAIN/12WKS PREG PER PT Time Seen by Provider: 05/31/19 23:44 Hx Obtained From: Patient Hx Last Menstrual Period: 13 weeks gravid Onset/Duration: Still Present Timing: Constant Severity Initially: Mild Severity Currently: Moderate Pain Intensity: 7 Pain Scale Used: 0-10 Numeric Location: Discrete At: RLQ, Discrete At: LLQ Radiates: No Character: Sharp Aggravating Factor(s): Nothing Alleviating Factor(s): Nothing Associated Signs and Symptoms: Positive: Back Pain - low L. Negative: Urinary Symptoms, Vaginal Bleeding Allergies/Adverse Reactions: Allergies Allergy/AdvReac Type Severity Reaction Status Date / Time ketorolac [From Toradol] Allergy Hives Verified 05/31/19 23:38 morphine Allergy Hives Verified 05/31/19 23:38 prednisone Allergy Insomnia Verified 05/31/19 23:38 Home Medications: Home Medications Vitamin TAB* 1 tab PO DAILY 04/30/19 [History Confirmed 06/01/19] PMH/Surg Hx/FS Hx/Imm Hx Endocrine/Hematology History: Denies: Hx Diabetes, Hx Thyroid Disease Cardiovascular History: Denies: Hx Hypertension Respiratory History: Reports: Hx Asthma - only uses inhalers when has URI Denies: Hx Chronic Obstructive Pulmonary Disease (COPD) GI History: Denies: Hx Ulcer History: Reports: Other Problems/Disorders - endometriosis, PCOS, 3 miscarriages Denies: Hx Renal Disease Sensory History: Reports: Hx Contacts or Glasses - wears glasses Denies: Hx Hearing Aid Opthamlomology History: Reports: Hx Contacts or Glasses - wears glasses Neurological History: Reports: Other Neuro Impairments/Disorders - PT HAS HX OF SUICIDAL IDEATION, SELF HARM, CANNIBUS ABUSE, Psychiatric History: Reports: Hx Anxiety, Hx Depression, Hx Inpatient Treatment , Hx Community Mental Health Tx, Hx of Violent Episodes Against Others Denies: Hx Eating Disorder - Surgical History Surgical History: Yes Surgery Procedure, Year, and Place: right foot surgeryx2 2015. Endometriosis/cystx2. PARTIAL SALPINGECTOMY--LEFT Hx Anesthesia Reactions: No Infectious Disease History: No Infectious Disease History: Denies: Hx Clostridium Difficile, Hx Hepatitis, Hx Human Immunodeficiency Virus (HIV), Hx of Known/Suspected MRSA, Hx Shingles, Hx Tuberculosis, Hx Known/ Suspected VRE, Hx Known/Suspected VRSA, History Other Infectious Disease, Traveled Outside the [place] in Last 30 Days - Family History Known Family History: Positive: Cardiac Disease, Hypertension, Diabetes - Social History Alcohol Use: None Hx Substance Use: No Substance Use Type: Reports: None Substance Use Comment - Amount & Last Used: STATES NON TODAY Hx Tobacco Use: Yes Smoking Status (MU): Former Smoker Type: Cigarettes Amount Used/How Often: 1 cig per day Length of Time of Smoking/Using Tobacco: Since Age 14 Have You Smoked in the Last Year: Yes Review of Systems Positive: Abdominal Pain - RLQ and LLQ Negative: burning, other - vaginal bleeding Positive: Myalgia - low left back All Other Systems Reviewed And Are Negative: Yes Physical Exam - Summary Physical Exam Summary: Constitutional: Well-developed, Well-nourished, Alert. (-) Distressed Skin: Warm, Dry HENT: Normocephalic; Atraumatic Eyes: Conjunctiva normal Neck: Musculoskeletal ROM normal neck. (-) JVD, (-) Stridor, (-) Nuchal rigidity Cardio: Rhythm regular, rate normal, Heart sounds normal; Intact distal pulses; Radial pulses are 2+ and symmetric. (-) Murmur Pulmonary/Chest wall: Effort normal. (-) Respiratory distress, (-) Wheezes, (-) Rales Abd: Soft, (+) LLQ tenderness, (-) Distension, (-) Guarding, (-) Rebound Musculoskeletal: (-) Edema Neuro: Alert, Oriented x3 Psych: Mood and affect Normal Triage Information Reviewed: Yes Vital Signs On Initial Exam: Initial Vitals Temp Pulse Resp BP Pulse Ox 98.4 F 88 15 136/104 99 05/31/19 23:36 05/31/19 23:36 05/31/19 23:36 05/31/19 23:36 05/31/19 23:36 Vital Signs Reviewed: Yes Procedures - Sedation Patient Received Moderate/Deep Sedation with Procedure: No Diagnostics - Vital Signs Vital Signs Temp Pulse Resp BP Pulse Ox 05/31/19 23:36 98.4 F 88 15 136/104 99 - Laboratory Result Diagrams: 06/01/19 00:03 06/01/19 00:03 Lab Statement: Any lab studies that have been ordered have been reviewed, and results considered in the medical decision making process. - Ultrasound US Ultrasound Interpretation Completed By: Radiologist Summary of Ultrasound Findings: Impression: The findings are compatible with demise at approx. 9-10 weeks gestational age. No heart motion is recorded. The ovaries show no evidence of torsion. Simple left ovarian cyst ( 3.3 cm avg. size). No adnexal pathology is seen. No free pelvic fluid is noted. ED physician has reviewed this report. Re-Evaluation - Re-Evaluation First Eval Re-Evaluation Time: 01:56 Comment: d/t patient US, consult with OBGYN, and plan for d/c with OB f/u , patient agreeable w plan Abdominal Pain Fem Course/Dx - Course Course Of Treatment: 18 y/o F at approx 12 weeks p/w lower abd cramping. - PE well appearing, mild LLQ tenderness. US c/w demise, ovarian cyst. No e/o torsion, abd soft. Labs unremarkable, denies vaginal discharge of fevers, do not suspect TOA/PID. D/w patient US results, given Rhogam as she is Rh Negative. 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 They will see her in the office soon she can call today. Patient well appearing w stable vitals. Agreeable to outpatient OB f/u. - Diagnoses Provider Diagnoses: Miscarriage, Retained products of conception - Provider Notifications Discussed Care Of Patient With: Tomeka HIGUERA Time Discussed With Above Provider: 01:55 Instructed by Provider To: Other - I discussed the patient's case with Dr. Granados, and she requests the patient to call the office later this morning for an appointment. Discharge ED - Sign-Out/Discharge Documenting (check all that apply): Patient Departure - Patient will be discharged home - Discharge Plan Condition: Stable Disposition: HOME Patient Education Materials: Miscarriage (ED) Forms: *Gen. Provider Communication Referrals: Juan Ramon Ford MD [Medical Doctor] - 06/01/19 Additional Instructions: You were seen in the emergency department for lower abdominal pain. Your ultrasound showed a cyst on your ovary. Your ultrasound also showed that you had a miscarriage. You got Rhogam today. Please call OB in the morning for an appointment for a possible D&C. It was a pleasure taking care of you today. - Billing Disposition and Condition Condition: STABLE Disposition: Home - Attestation Statements Document Initiated by Scribe: Yes Documenting Scribe: Ashleigh Carter Provider For Whom Luis is Documenting (Include Credential): Dr. Sincere Hernandez MD Scribe Attestation: I, Ashleigh Carter, scribed for Dr. Sincere Hernandez MD on 06/01/19 at 0330. Scribe Documentation Reviewed: Yes Provider Attestation: The documentation as recorded by the Ashleigh brito accurately reflects the service I personally performed and the decisions made by me, Dr. Sincere Hernandez MD Status of Scribe Document: Viewed
[2019-06-01 00:12] LABS: ABS Eosinophils 0.1 10^3/ul (0-0.6); ABS Lymphocytes 3.6 10^3/ul (1.0-4.8); ABS Monocytes 0.6 10^3/ul (0-0.8); ABS Neutrophils 5.5 10^3/ul (1.5-7.7); Hematocrit 33 % (35-47); Hemoglobin 11.8 g/dL (12.0-16.0); Lymphocyte % 36.7 %; Mean Corpuscular HGB Conc 35 g/dL (31-36); Mean Corpuscular Hemoglobin 31 pg (27-31); Mean Corpuscular Volume 86 fL (80-97); Mean Platelet Volume 6.7 fL (7.4-10.4); Nucleated Red Blood Cells % 0.1; Platelet Count 281 10^3/uL (150-450); Red Blood Count 3.85 10^6 /uL (3.70-4.87); Red Cell Distribution Width 14 % (10-15); White Blood Count 9.8 10^3/uL (3.5-10.8)
[2019-06-01 00:29] LABS: Albumin 3.9 g/dL (3.2-5.2); Albumin/Globulin Ratio 1.4 (1-3); BUN/Creatinine Ratio 21.2 (8-20); EGFR African American 183.8 (>60); EGFR Non-African American 151.9 (>60); Globulin 2.7 g/dL (2-4); Total Bilirubin 0.2 mg/dL (0.2-1.0); Total Protein 6.6 g/dL (6.4-8.9)
[2019-06-01] MEDS ORDERED: RHO D Immune Globulin (HUMAN)* 300 MCG = 1,500 I.U. INJ IM ONE (02:30)
[2019-06-01 03:14] VITALS: BP 147/62
== END 2019-06-01 03:14 | disposition home or self-care (01) ==
LOC: ED 23:35
DX: O03.4 Incomplete spontaneous abortion without complication (principal); M54.5 Low back pain; R10.84 Generalized abdominal pain; N83.202 Unspecified ovarian cyst, left side; Z87.891 Personal history of nicotine dependence; Z88.8 Allergy status to other drugs, medicaments and biological substances; Z88.6 Allergy status to analgesic agent
CPT/HCPCS: 36415; 76801; 80053; 81003; 81015; 85025; 86850; 86900; 86901; 87086; 96372; 99282; J2790

== ENCOUNTER → 2019-06-09 09:34 | Day surgery (SDC) | payer SELFPAY ==
[~2019-06-09 09:34] MED LIST changes: +Acetaminophen IV 1GM/100ML * 100 ML ONE; -Buffered Lidocaine 0.9% SYRIN* 5 ML/SYR SYRINGE INTRADERM ONE; -Buffered Lidocaine 0.9% SYRIN* 5 ML/SYR SYRINGE ONE; +Buffered Lidocaine 1% SYRIN* 1 ML/SYRINGE INTRADERM ONE; +DOXYcycline IV 200 MG in NS 250 mL *Pre-Op OBGYN IVPB ONE; -Dexamethasone IV* 4 MG/ML 1 ML (4 MG) IV SLOW PU ONE; +DiMENhydriNATE IV* 50 MG/ML VIAL IV PUSH PRN; -Famotidine IV* 10 MG/ML 2 ML (20 mg) IV ONE; -Famotidine IV* 10 MG/ML 2 ML (20 mg) ONE; +KETAMINE HCL* 50 MG/ML 10 ML VIAL ONE; +Ketorolac INJ* 30 MG/ML 1 ML VIAL IV PRN; +Lactated Ringers 1000 ML Bag* 1,000 ML IV SCH; +Lidocaine 1% INJ* 10 MG/ML 30 ML SDV ONE; +Midazolam concentrated* 5 MG/ML 1 ml VIAL ONE; +Midazolam* 1 MG/ML 2 ML VIAL (2 MG) IV SLOW PU ONE; +Midazolam* 1 MG/ML 2 ML VIAL (2 MG) ONE; +Midazolam* 1 MG/ML 5 ML VIAL (5 MG) ONE; +Ondansetron INJ* 2 MG/ML VIAL ONE; +Propofol* 10 MG/ML 20 ML BTL ONE; +Propofol* 500 MG/50 ML BTL ONE; -ceFAZolin 2 GM PREMIX(*) 2 GM/50 ML BAG IVPB ONE; +oxyCODONE TAB* 5 MG TAB ONE
[2019-06-09 12:17] VITALS: BP 123/68
--- NOTE | 2019-06-11 13:07 | OP ---
DATE OF OPERATION: 06/09/19 - [facility] DATE OF : 89 SURGEON: Juan Ramon Ford MD ANESTHESIA: Monitored anesthesia care with sedation. PRE-OP DIAGNOSIS: Missed in the first trimester. POST-OP DIAGNOSIS: Missed in the first trimester. OPERATIVE PROCEDURE: Dilation and evacuation of products of conception with suction and curettage. ESTIMATED BLOOD LOSS: 100 mL. SPECIMENS: Sent to Pathology were products of conception and endometrial curettings. FLUIDS: She received 1 L of IV crystalloid fluid. URINE OUTPUT: 200 cc of clear urine. FINDINGS: The uterus sounded to 10 to 11 cm in an anteverted position and there were moderate amounts of products of conception removed from within the uterus and there were no complications. DESCRIPTION OF PROCEDURE: The patient was taken to the operating room where she was identified. She was placed on the operating table where she was sedated. She was then placed in a dorsal lithotomy position, prepped and draped in normal sterile fashion. The bladder was then catheterized and drained of clear urine. A speculum was then entered into the patient's vagina. The cervix was identified and grasped with a single-tooth tenaculum. The uterus was then sounded and was noted to be in an anteverted position. The cervix was then further dilated with Hegar dilators and through the cervix a 10 mm curved suction curette was introduced. Suction was then applied to the curette and a suction curettage was performed. Emptying of the endometrial cavity was confirmed by sharp curettage. All the instruments were then removed from the patient's vagina. Sponge, lap, needle counts and instrument counts were correct x2. She was then transferred to the recovery room area in stable condition. [id number]/[facility] #: [id number] [facility]
[2019-06-19 15:43] LABS: Result Summary Normal Female
== END | disposition home or self-care (01) ==
LOC: OR 09:34
PROVIDERS: ATTEND Obstetrics & Gynecology
DX: O03.4 Incomplete spontaneous abortion without complication (principal); O02.1 Missed abortion; J45.909 Unspecified asthma, uncomplicated; N80.9 Endometriosis, unspecified; F41.8 Other specified anxiety disorders; E28.2 Polycystic ovarian syndrome; Z87.891 Personal history of nicotine dependence
CPT/HCPCS: 81229; 88305; A9270-GY; J1100; J2250; J2405; J2704

== ENCOUNTER 2021-01-06 17:00 | Inpatient (IN) ==
[2021-01-06 18:18] LABS: Urine Appearance Cloudy; Urine Bilirubin Negative (Negative); Urine Blood 2+ (Negative); Urine Color Yellow; Urine Glucose Negative (Negative); Urine Ketones Negative (Negative); Urine Nitrite Negative (Negative); Urine Protein Negative (Negative); Urine Urobilinogen Negative (Negative)
[2021-01-06 18:25] LABS: Urine Bacteria Absent (Absent); Urine Red Blood Cell 2+(6-10/hpf) (Absent); Urine Squamous Epithelial Cell Present (Absent); Urine White Blood Cell Absent (Absent)
[2021-01-06 18:26] LABS: Urine Benzodiazepine Screen None Detected (None Detect); Urine Cannabinoids Screen None Detected (None Detect); Urine Opiates Screen None Detected (None Detect)
[2021-01-06 18:47] LABS: Hematocrit 31 % (35-47); Hemoglobin 10.5 g/dL (12.0-16.0); Mean Corpuscular HGB Conc 34 g/dL (31-36); Mean Corpuscular Hemoglobin 30 pg (27-31); Mean Corpuscular Volume 89 fL (80-97); Mean Platelet Volume 6.6 fL (7.4-10.4); Platelet Count 335 10^3/uL (150-450); Red Blood Count 3.47 10^6 /uL (3.70-4.87); Red Cell Distribution Width 15 % (10-15); White Blood Count 12.2 10^3/uL (3.5-10.8)
[2021-01-06 19:05] LABS: Albumin 3.4 g/dL (3.2-5.2); Albumin/Globulin Ratio 1.1 (1-3); Calcium 9.5 mg/dL (8.6-10.3); Potassium 3.5 mmol/L (3.5-5.0); Total Bilirubin 0.2 mg/dL (0.2-1.0); Total Protein 6.4 g/dL (6.4-8.9)
[2021-01-06] MEDS ORDERED: Magnesium Sulfate OB PREMIX 4 GM/100 ML BAG IV ONE (19:17)
[2021-01-06] MEDS ORDERED: Buffered Lidocaine 1% SYRIN 1 ml INTRADERM ONE (19:17)
[2021-01-06] MEDS ORDERED: Magnesium Sulfate OB PREMIX 40 GM/1,000 ML BAG IVPB SCH (20:00)
[2021-01-06] MEDS: Heparin 5000 UNITS/ML 1 mL VIAL SUBCUT SCH (20:16)
[2021-01-06] MEDS: Betamethasone 6 mg/ml 5 ml VIAL IM SCH (20:17)
[2021-01-06] MEDS: Lactated Ringers 1000 ml BAG 1,000 ML IV SCH (20:44)
[2021-01-06] MEDS: Butalb/Acetamin/Caff TAB 325-50-40MG PO PRN (21:15)
[2021-01-07 06:31] VITALS: BP 126/69
[2021-01-07] MEDS: Butalb/Acetamin/Caff TAB 325-50-40MG PO PRN (07:37)
[2021-01-07] MEDS ORDERED: Metoclopramide 5 MG/ML VIAL (10 mg) IV SLOW PU ONE (09:44)
[2021-01-07 10:34] LABS: ABS Lymphocytes 2.1 10^3/ul (1.0-4.8); ABS Monocytes 0.4 10^3/ul (0-0.8); ABS Neutrophils 15.2 10^3/ul (1.5-7.7); Hematocrit 30 % (35-47); Hemoglobin 10.5 g/dL (12.0-16.0); Mean Corpuscular HGB Conc 35 g/dL (31-36); Mean Corpuscular Hemoglobin 31 pg (27-31); Mean Corpuscular Volume 89 fL (80-97); Mean Platelet Volume 6.8 fL (7.4-10.4); Nucleated Red Blood Cells % 0.1; Platelet Count 359 10^3/uL (150-450); Red Blood Count 3.42 10^6 /uL (3.70-4.87); Red Cell Distribution Width 15 % (10-15); White Blood Count 17.7 10^3/uL (3.5-10.8)
[2021-01-07 10:49] LABS: Albumin 3.4 g/dL (3.2-5.2); Albumin/Globulin Ratio 1.3 (1-3); Calcium 7.9 mg/dL (8.6-10.3); Globulin 2.7 g/dL (2-4); Magnesium 4.2 mg/dL (1.9-2.7); Potassium 3.8 mmol/L (3.5-5.0); Total Bilirubin 0.3 mg/dL (0.2-1.0); Total Protein 6.1 g/dL (6.4-8.9); Uric Acid 5.6 mg/dL (2.3-6.6)
[2021-01-07] MEDS: Heparin 5000 UNITS/ML 1 mL VIAL SUBCUT SCH ×2 (13:13→13:20)
[2021-01-07] MEDS: Lactated Ringers 1000 ml BAG 1,000 ML IV SCH (15:47)
[2021-01-07] MEDS ORDERED: Ondansetron 4 mg VIAL 2 MG/ML 2 ml VIAL IV ONE (16:45)
[2021-01-07 17:19] LABS: Urine Collection Time OB 24 hr
[2021-01-07 17:54] LABS: Urine Total Volume OB 2400 mL
[2021-01-07 18:30] LABS: Ur TP Concentration Obstetric 11 mg/dL
[2021-01-07] MEDS ORDERED: Metoclopramide 5 MG/ML VIAL (10 mg) IV SLOW PU PRN (19:38)
[2021-01-07] MEDS: Betamethasone 6 mg/ml 5 ml VIAL IM SCH (20:14)
[2021-01-08] MEDS: Heparin 5000 UNITS/ML 1 mL VIAL SUBCUT SCH (00:34)
[2021-01-08 06:24] LABS: Hematocrit 30 % (35-47); Hemoglobin 10.1 g/dL (12.0-16.0); Mean Corpuscular HGB Conc 34 g/dL (31-36); Mean Corpuscular Hemoglobin 31 pg (27-31); Mean Corpuscular Volume 90 fL (80-97); Red Blood Count 3.31 10^6 /uL (3.70-4.87); Red Cell Distribution Width 15 % (10-15); White Blood Count 15.2 10^3/uL (3.5-10.8)
[2021-01-08 06:25] LABS: ABS Lymphocytes 1.9 10^3/ul (1.0-4.8); ABS Monocytes 0.5 10^3/ul (0-0.8); ABS Neutrophils 12.8 10^3/ul (1.5-7.7); Eosinophil % 0.1 %; Lymphocyte % 12.5 %; Nucleated Red Blood Cells % 0.1
[2021-01-08 06:35] LABS: Albumin 3.3 g/dL (3.2-5.2); Albumin/Globulin Ratio 1.1 (1-3); Calcium 8.5 mg/dL (8.6-10.3); Globulin 2.9 g/dL (2-4); Potassium 4.9 mmol/L (3.5-5.0); Total Bilirubin 0.2 mg/dL (0.2-1.0); Total Protein 6.2 g/dL (6.4-8.9); Uric Acid 4.9 mg/dL (2.3-6.6)
[2021-01-08 07:26] LABS: Polychromasia 1+
[2021-01-08 07:27] LABS: Mean Platelet Volume 6.9 fL (7.4-10.4); Platelet Count 291 10^3/uL (150-450)
== END 2021-01-08 10:00 | disposition home or self-care (01) | DRG 566 ==
LOC: MCHOBOUT 17:00 → MCHOB 19:23
PROVIDERS: ADMIT Obstetrics & Gynecology; ATTEND Obstetrics & Gynecology

== ENCOUNTER 2021-01-10 09:38 | Observation (INO) ==
[2021-01-10] MEDS ORDERED: Buffered Lidocaine 1% SYRIN 1 ml INTRADERM ONE (12:41)
[2021-01-10] MEDS ORDERED: Butalb/Acetamin/Caff TAB 325-50-40MG PO ONE (12:43)
[2021-01-10] MEDS ORDERED: Butalb/Acetamin/Caff TAB 325-50-40MG ONE (12:51)
[2021-01-10 20:34] LABS: ABS Basophils 0.1 10^3/ul (0-0.2); ABS Eosinophils 0.1 10^3/ul (0-0.6); ABS Monocytes 0.9 10^3/ul (0-0.8); ABS Neutrophils 9.2 10^3/ul (1.5-7.7); Eosinophil % 0.5 %; Hematocrit 32 % (35-47); Hemoglobin 10.7 g/dL (12.0-16.0); Lymphocyte % 22.7 %; Mean Corpuscular HGB Conc 34 g/dL (31-36); Mean Corpuscular Hemoglobin 30 pg (27-31); Mean Corpuscular Volume 89 fL (80-97); Mean Platelet Volume 6.6 fL (7.4-10.4); Nucleated Red Blood Cells % 0.2; Platelet Count 365 10^3/uL (150-450); Red Blood Count 3.59 10^6 /uL (3.70-4.87); Red Cell Distribution Width 14 % (10-15); White Blood Count 13.2 10^3/uL (3.5-10.8)
[2021-01-10 20:48] LABS: INR 0.99 (0.86-1.15); Urine Appearance Cloudy; Urine Bilirubin Negative (Negative); Urine Blood Negative (Negative); Urine Color Yellow; Urine Glucose Negative (Negative); Urine Ketones Negative (Negative); Urine Nitrite Negative (Negative); Urine Protein Negative (Negative); Urine Specific Gravity 1.018 (1.002-1.030); Urine Urobilinogen Negative (Negative)
[2021-01-10 20:52] LABS: Albumin 3.4 g/dL (3.2-5.2); Calcium 9.4 mg/dL (8.6-10.3); Globulin 3.3 g/dL (2-4); Magnesium 1.6 mg/dL (1.9-2.7); Potassium 3.8 mmol/L (3.5-5.0); Total Bilirubin 0.2 mg/dL (0.2-1.0); Total Protein 6.7 g/dL (6.4-8.9)
[2021-01-10 20:54] LABS: Urine Benzodiazepine Screen None Detected (None Detect); Urine Cannabinoids Screen None Detected (None Detect); Urine Opiates Screen None Detected (None Detect)
[2021-01-10] MEDS ORDERED: Enoxaparin 40 MG/0.4 ML SYR SUBCUT SCH (21:00)
[2021-01-11 09:00] LABS: ABS Eosinophils 0.1 10^3/ul (0-0.6); ABS Lymphocytes 3.1 10^3/ul (1.0-4.8); ABS Monocytes 0.9 10^3/ul (0-0.8); ABS Neutrophils 10.4 10^3/ul (1.5-7.7); Eosinophil % 0.4 %; Hematocrit 32 % (35-47); Hemoglobin 10.7 g/dL (12.0-16.0); Lymphocyte % 21.4 %; Mean Corpuscular HGB Conc 33 g/dL (31-36); Mean Corpuscular Hemoglobin 30 pg (27-31); Mean Corpuscular Volume 89 fL (80-97); Mean Platelet Volume 6.4 fL (7.4-10.4); Platelet Count 312 10^3/uL (150-450); Red Blood Count 3.63 10^6 /uL (3.70-4.87); Red Cell Distribution Width 15 % (10-15); White Blood Count 14.6 10^3/uL (3.5-10.8)
[2021-01-11 09:19] LABS: Calcium 9.5 mg/dL (8.6-10.3); Magnesium 1.7 mg/dL (1.9-2.7)
[2021-01-11] MEDS ORDERED: Magnesium Sulfate 2 gm BAG 2 GM/50 ML BAG IVPB ONE (09:47)
[2021-01-11] MEDS ORDERED: diPHENhydraMINE IV 50 MG/ML 1 ml VIAL (BENADRYL) IV ONE (11:24)
[2021-01-11] MEDS ORDERED: Metoclopramide 5 MG/ML VIAL (10 mg) IV ONE (11:24)
[2021-01-11 12:36] VITALS: BP 139/76
== END 2021-01-11 15:00 | disposition left against medical advice (07) ==
LOC: SSU 09:38 → MCHOBOUT 09:38
PROVIDERS: ADMIT Internal Medicine; ATTEND Obstetrics & Gynecology

== ENCOUNTER 2021-02-13 06:26 | Inpatient (IN) ==
[~2021-02-13 06:26] MED LIST changes: -Acetaminophen IV 1GM/100ML * 100 ML ONE; +Buffered Lidocaine 1% SYRIN 1 ml INTRADERM ONE; -Buffered Lidocaine 1% SYRIN* 1 ML/SYRINGE INTRADERM ONE; -DOXYcycline IV 200 MG in NS 250 mL *Pre-Op OBGYN IVPB ONE; -Dexamethasone IV* 4 MG/ML 1 ML (4 MG) ONE; -DiMENhydriNATE IV* 50 MG/ML VIAL IV PUSH PRN; -KETAMINE HCL* 50 MG/ML 10 ML VIAL ONE; -Ketorolac INJ* 30 MG/ML 1 ML VIAL IV PRN; -Lactated Ringers 1000 ML Bag* 1,000 ML IV SCH; +Lactated Ringers 1000 ml BAG 1,000 ML IV SCH; -Lidocaine 1% INJ* 10 MG/ML 30 ML SDV ONE; -Midazolam concentrated* 5 MG/ML 1 ml VIAL ONE; -Midazolam* 1 MG/ML 2 ML VIAL (2 MG) IV SLOW PU ONE; -Midazolam* 1 MG/ML 2 ML VIAL (2 MG) ONE; -Midazolam* 1 MG/ML 5 ML VIAL (5 MG) ONE; -Ondansetron INJ* 2 MG/ML VIAL ONE; -Propofol* 10 MG/ML 20 ML BTL ONE; -Propofol* 500 MG/50 ML BTL ONE; +Sodium Citrate/Citric Acid LIQ 15 ML UDC PO ONE; -oxyCODONE TAB* 5 MG TAB ONE
[2021-02-13 07:00] LABS: ABS Lymphocytes 2.7 10^3/ul (1.0-4.8); ABS Monocytes 0.8 10^3/ul (0-0.8); ABS Neutrophils 6.9 10^3/ul (1.5-7.7); Eosinophil % 0.5 %; Hematocrit 33 % (35-47); Hemoglobin 11.4 g/dL (12.0-16.0); Lymphocyte % 25.7 %; Mean Corpuscular HGB Conc 35 g/dL (31-36); Mean Corpuscular Hemoglobin 30 pg (27-31); Mean Corpuscular Volume 87 fL (80-97); Mean Platelet Volume 6.7 fL (7.4-10.4); Platelet Count 291 10^3/uL (150-450); Red Blood Count 3.79 10^6 /uL (3.70-4.87); Red Cell Distribution Width 14 % (10-15); White Blood Count 10.4 10^3/uL (3.5-10.8)
[2021-02-13] MEDS ORDERED: ceFOXitin 2 GM PREMIX 50 ML IVPB ONE (07:00)
[2021-02-13 07:11] LABS: Urine Benzodiazepine Screen None Detected (None Detect); Urine Opiates Screen None Detected (None Detect)
[2021-02-13] MEDS ORDERED: Oxytocin 10 UNITS/ML 1 ML VIAL ONE (07:44)
[2021-02-13] MEDS ORDERED: Bupivacaine 0.5% SDV PF 30ML VIAL ONE (08:01)
[2021-02-13] MEDS ORDERED: fentaNYL 100 mcg/2 ml 50 MCG/ML VIAL ONE ×2 (08:01→09:00)
[2021-02-13] MEDS ORDERED: Dexamethasone IV 4 MG/ML VIAL 1 ml VIAL ONE (09:06)
[2021-02-13] MEDS ORDERED: Acetaminophen IV 1 GM/100ML 100 ML IV ONE (09:06)
[2021-02-13] MEDS ORDERED: Ondansetron 4 mg VIAL 2 MG/ML 2 ml VIAL ONE (09:06)
[2021-02-13] MEDS ORDERED: EPHEDrine (Pressors) 50 MG/ML VIAL ONE (09:14)
[2021-02-13] MEDS ORDERED: fentaNYL 100 mcg/2 ml 50 MCG/ML VIAL IV PRN (10:10)
[2021-02-13] MEDS ORDERED: Naloxone 0.4 mg VIAL 0.4 mg/ml 1 ml VIAL IV PRN (10:10)
[2021-02-13] MEDS ORDERED: DiMENhydriNATE IV 50 mg/ml 1 ml VIAL IV PUSH PRN (10:10)
[2021-02-13] MEDS ORDERED: Ondansetron 4 mg VIAL 2 MG/ML 2 ml VIAL IV PRN (10:10)
[2021-02-13] MEDS ORDERED: Witch Hazel PAD JAR TOPICAL PRN (10:28)
[2021-02-13] MEDS ORDERED: Glycerin ADULT 2.4 gm SUPP PR PRN (10:28)
[2021-02-13] MEDS ORDERED: RHO D Immune Globulin (HUMAN) 300 MCG = 1,500 I.U. INJ IM PRN (10:28)
[2021-02-13] MEDS ORDERED: Lactated Ringers 1000 ml BAG 1,000 ML IV SCH (11:00)
[2021-02-13 11:19] LABS: Urine Appearance Clear; Urine Bilirubin Negative (Negative); Urine Blood Negative (Negative); Urine Color Yellow; Urine Glucose Negative (Negative); Urine Ketones Negative (Negative); Urine Nitrite Negative (Negative); Urine Protein Negative (Negative); Urine Specific Gravity 1.017 (1.002-1.030); Urine Urobilinogen Negative (Negative)
[2021-02-13] MEDS ORDERED: Enoxaparin 40 MG/0.4 ML SYR SUBCUT SCH (21:00)
[2021-02-14 08:31] LABS: ABS Basophils 0.1 10^3/ul (0-0.2); ABS Lymphocytes 2.8 10^3/ul (1.0-4.8); ABS Monocytes 0.9 10^3/ul (0-0.8); ABS Neutrophils 8.7 10^3/ul (1.5-7.7); Eosinophil % 0.3 %; Hematocrit 28 % (35-47); Hemoglobin 9.2 g/dL (12.0-16.0); Lymphocyte % 22.4 %; Mean Corpuscular HGB Conc 34 g/dL (31-36); Mean Corpuscular Hemoglobin 30 pg (27-31); Mean Corpuscular Volume 88 fL (80-97); Mean Platelet Volume 6.5 fL (7.4-10.4); Platelet Count 237 10^3/uL (150-450); Red Blood Count 3.13 10^6 /uL (3.70-4.87); Red Cell Distribution Width 15 % (10-15); White Blood Count 12.4 10^3/uL (3.5-10.8)
[2021-02-14] MEDS: Enoxaparin 40 MG/0.4 ML SYR SUBCUT SCH (10:41)
[2021-02-15] MEDS: Enoxaparin 40 MG/0.4 ML SYR SUBCUT SCH (09:00)
[2021-02-16 08:11] VITALS: BP 145/79
== END 2021-02-16 11:18 | disposition home or self-care (01) | DRG 540 ==
LOC: MCHOB 06:26
PROVIDERS: ADMIT Obstetrics & Gynecology; ATTEND Obstetrics & Gynecology

== ENCOUNTER 2021-10-25 10:42 | Inpatient (IN) ==
[~2021-10-25 10:42] MED LIST changes: +Famotidine IV 10 MG/ML 2 ml VIAL (20 mg) IV ONE; +Lidocaine 2% PF 5 ML VIAL ONE; +Midazolam 2 mg/2 ml VIAL 1 mg/ml 2 ml VIAL (2 mg) ONE; +Propofol 10 MG/ML 20 ML BTL ONE; +Rocuronium 50 mg VIAL 10 mg/ml 5 ml VIAL (50 mg) ONE; +Scopolamine 1 mg/72hr PATCH TRANSDERM ONE; -Sodium Citrate/Citric Acid LIQ 15 ML UDC PO ONE; +fentaNYL 100 mcg/2 ml 50 MCG/ML VIAL ONE
[2021-10-25] MEDS ORDERED: ceFAZolin 1 GM in Dextrose 1 GM/50 ML BAG ONE (10:47)
[2021-10-25] MEDS ORDERED: Famotidine IV 10 MG/ML 2 ml VIAL (20 mg) ONE (10:47)
[2021-10-25] MEDS ORDERED: Scopolamine 1 mg/72hr PATCH ONE (10:47)
[2021-10-25] MEDS ORDERED: ceFAZolin 2 GM PREMIX 2 GM/50 ML BAG ONE (10:47)
[2021-10-25] MEDS ORDERED: Heparin 5000 UNITS/ML 1 mL VIAL ONE (10:47)
[2021-10-25] MEDS ORDERED: Famotidine IV 10 MG/ML 2 ml VIAL (20 mg) IV ONE (10:47)
[2021-10-25] MEDS ORDERED: Methylene Blue 0.5 % 50 MG/10 ML AMP IV ONE (12:13)
[2021-10-25] MEDS ORDERED: Bupivacaine 0.25% EPI 200,000 30 ML SDV ONE (12:13)
[2021-10-25] MEDS ORDERED: HYDROmorphone 0.5 MG/0.5 ML SYRINGE ONE ×2 (13:26→13:27)
[2021-10-25] MEDS ORDERED: Acetaminophen IV 1 GM/100ML 100 ML IV ONE (13:27)
[2021-10-25] MEDS ORDERED: Rocuronium 50 mg VIAL 10 mg/ml 5 ml VIAL (50 mg) ONE (13:47)
[2021-10-25] MEDS ORDERED: HYDROmorphone 1 MG/1 ML SYRINGE IV PRN (13:54)
[2021-10-25] MEDS ORDERED: Naloxone 0.4 mg VIAL 0.4 mg/ml 1 ml VIAL IV PRN (13:54)
[2021-10-25] MEDS ORDERED: fentaNYL 100 mcg/2 ml 50 MCG/ML VIAL IV PRN (13:54)
[2021-10-25] MEDS ORDERED: Prochlorperazine 5 mg/ml 2 ml VIAL (10 mg) IV PRN (13:54)
[2021-10-25] MEDS ORDERED: Ondansetron 4 mg VIAL 2 MG/ML 2 ml VIAL ONE (13:59)
[2021-10-25] MEDS ORDERED: Propofol 10 MG/ML 20 ML BTL ONE (14:06)
[2021-10-25] MEDS ORDERED: fentaNYL 100 mcg/2 ml 50 MCG/ML VIAL ONE ×2 (15:00→17:24)
[2021-10-25] MEDS ORDERED: HYDROcodone/ACET. 7.5/325 LIQ 15 ML UDC PO PRN (17:04)
[2021-10-25] MEDS ORDERED: Prochlorperazine 5 mg/ml 2 ml VIAL (10 mg) ONE (17:38)
[2021-10-25] MEDS: Lactated Ringers 1000 ml BAG 1,000 ML IV SCH (18:35)
[2021-10-25] MEDS: HYDROmorphone 0.5 MG/0.5 ML SYRINGE IV SLOW PU PRN ×2 (19:44→23:51)
[2021-10-25] MEDS: Famotidine IV 10 MG/ML 2 ml VIAL (20 mg) IV SLOW PU SCH (20:58)
[2021-10-25] MEDS: Acetaminophen IV 1 GM/100ML 100 ML IV SCH (21:02)
[2021-10-25] MEDS: HYDROmorphone 1 MG/1 ML SYRINGE IV SLOW PU PRN (21:40)
[2021-10-26] MEDS: Lactated Ringers 1000 ml BAG 1,000 ML IV SCH ×2 (01:35→09:42)
[2021-10-26] MEDS: Acetaminophen IV 1 GM/100ML 100 ML IV SCH ×3 (03:25→14:50)
[2021-10-26] MEDS: HYDROmorphone 0.5 MG/0.5 ML SYRINGE IV SLOW PU PRN ×2 (03:25→06:59)
[2021-10-26] MEDS: Ondansetron 4 mg VIAL 2 MG/ML 2 ml VIAL IV PRN ×2 (03:41→09:38)
[2021-10-26] MEDS: Heparin 5000 UNITS/ML 1 mL VIAL SUBCUT SCH ×2 (05:14→14:07)
[2021-10-26] MEDS ORDERED: Lactated Ringers 1000 ml BAG 1,000 ML IV SCH (06:00)
[2021-10-26] MEDS: Famotidine IV 10 MG/ML 2 ml VIAL (20 mg) IV SLOW PU SCH (08:24)
[2021-10-26 11:34] VITALS: BP 140/89
[2021-10-26] MEDS: HYDROmorphone 1 MG/1 ML SYRINGE IV SLOW PU PRN (14:10)
[2021-10-26] MEDS ORDERED: D5W 1/2 NS KCl 20 meq 1000 ml 1,000 ML IV SCH (18:35)
== END 2021-10-26 16:05 | disposition home or self-care (01) | DRG 403 ==
LOC: AA 10:42 → SSU 18:30
PROVIDERS: ADMIT Surgery; ATTEND Surgery

== ENCOUNTER 2021-12-09 15:30 | Observation (INO) ==
[2021-12-09] MEDS ORDERED: Thiamine IV 100 MG, Folic Acid IV 1 MG, Multiple Vitamin IV ADULT 10 ML in D5NS 0.9% 10... IVPB ONE (15:55)
[2021-12-09] MEDS ORDERED: Pantoprazole VIAL 40 MG VIAL IV ONE (16:00)
[2021-12-09] MEDS ORDERED: NS 0.9% 1000 ml BAG 1,000 ML IV ONE (16:30)
[2021-12-09] MEDS ORDERED: Ondansetron 4 mg VIAL 2 MG/ML 2 ml VIAL IV ONE (16:48)
[2021-12-09] MEDS ORDERED: fentaNYL 100 mcg/2 ml 50 MCG/ML VIAL IV SLOW PU ONE ×2 (16:48→20:26)
[2021-12-09 16:49] LABS: ABS Eosinophils 0.1 10^3/ul (0-0.6); ABS Lymphocytes 1.5 10^3/ul (1.0-4.8); ABS Monocytes 0.5 10^3/ul (0-0.8); ABS Neutrophils 8.7 10^3/ul (1.5-7.7); Eosinophil % 0.8 %; Hematocrit 41 % (35-47); Hemoglobin 14.5 g/dL (12.0-16.0); Lymphocyte % 13.9 %; Mean Corpuscular HGB Conc 35 g/dL (31-36); Mean Corpuscular Hemoglobin 31 pg (27-31); Mean Corpuscular Volume 87 fL (80-97); Mean Platelet Volume 7.6 fL (7.4-10.4); Platelet Count 267 10^3/uL (150-450); Red Blood Count 4.72 10^6 /uL (3.70-4.87); Red Cell Distribution Width 16 % (10-15); White Blood Count 10.9 10^3/uL (3.5-10.8)
[2021-12-09 16:56] LABS: INR 1.16 (0.89-1.11)
[2021-12-09 17:28] LABS: Albumin 4.3 g/dL (3.2-5.2); Albumin/Globulin Ratio 1.7 (1-3); C Reactive Protein 4.94 mg/L (<8.01); Calcium 9.8 mg/dL (8.6-10.3); Globulin 2.5 g/dL (2-4); Potassium 3.5 mmol/L (3.5-5.0); Total Bilirubin 0.7 mg/dL (0.2-1.0); Total Protein 6.8 g/dL (6.4-8.9); eGFR CKD-EPI 132.3 (>60)
[2021-12-09 17:33] LABS: HCG Pregnancy 6.97 mIU/mL
[2021-12-09] MEDS ORDERED: Iohexol 350 (CONTRAST) 500 ML MDV IV ONE (17:36)
[2021-12-09 19:24] LABS: Urine Appearance Clear; Urine Bilirubin Negative (Negative); Urine Color Straw; Urine Glucose Negative (Negative); Urine Ketones 4+ (>=160mg/dL) (Negative); Urine Nitrite Positive (Negative); Urine Protein Negative (Negative); Urine Specific Gravity <=1.005 (1.005-1.030); Urine Urobilinogen 1.0 (Negative) (Negative); Urine pH 5.5 (5.0-9.0)
[2021-12-09 19:29] LABS: Urine Bacteria 1+ (Absent); Urine Red Blood Cell 2+(6-10/hpf) (Absent); Urine Squamous Epithelial Cell Present (Absent); Urine White Blood Cell Trace(0-5/hpf) (Absent)
[2021-12-09] MEDS ORDERED: Piperacillin/Tazobac ADVAN 3.375 GM in NS 0.9% 100 ml BAG 100 ML IV ONE (20:41)
[2021-12-09] MEDS ORDERED: oxyCODONE/Acetamin 5/325 mg TAB PO PRN (21:11)
[2021-12-09] MEDS ORDERED: Ondansetron 4 mg VIAL 2 MG/ML 2 ml VIAL IV PRN ×2 (21:11→23:34)
[2021-12-09] MEDS ORDERED: Ondansetron 4 mg VIAL 2 MG/ML 2 ml VIAL IM ONE ×2 (21:23→23:47)
[2021-12-09] MEDS ORDERED: Lidocaine 2% PF 5 ML VIAL ONE ×2 (21:23)
[2021-12-09] MEDS ORDERED: Rocuronium 50 mg VIAL 10 mg/ml 5 ml VIAL (50 mg) INJ ONE (21:23)
[2021-12-09] MEDS ORDERED: Midazolam 5 mg/5 ml VIAL 1 mg/ml 5 ml VIAL (5 mg) ONE ×2 (21:23)
[2021-12-09] MEDS ORDERED: fentaNYL 100 mcg/2 ml 50 MCG/ML VIAL ONE ×4 (21:23→23:47)
[2021-12-09] MEDS ORDERED: Rocuronium 50 mg VIAL 10 mg/ml 5 ml VIAL (50 mg) ONE (21:23)
[2021-12-09] MEDS ORDERED: Dexamethasone IV 4 MG/ML VIAL 1 ml VIAL ONE ×2 (21:23)
[2021-12-09] MEDS ORDERED: Propofol 10 MG/ML 20 ML BTL ONE ×2 (21:23)
[2021-12-09] MEDS ORDERED: Ondansetron 4 mg VIAL 2 MG/ML 2 ml VIAL ONE ×2 (21:23→23:47)
[2021-12-09] MEDS ORDERED: Bupivacaine 0.25% w/EPI 10 ML SDV ONE ×2 (21:28)
[2021-12-09] MEDS ORDERED: Lactated Ringers 1000 ml BAG 1,000 ML IV SCH (22:00)
[2021-12-09] MEDS ORDERED: Scopolamine 1 mg/72hr PATCH ONE ×2 (22:12)
[2021-12-09] MEDS ORDERED: Sugammadex 500 MG/5 ML 5 ml VIAL IV PUSH ONE ×2 (23:00)
[2021-12-09] MEDS ORDERED: fentaNYL 100 mcg/2 ml 50 MCG/ML VIAL IV PRN (23:34)
[2021-12-09] MEDS ORDERED: Naloxone 0.4 mg VIAL 0.4 mg/ml 1 ml VIAL IV PRN (23:34)
[2021-12-10] MEDS: HYDROmorphone 0.5 MG/0.5 ML SYRINGE IV SLOW PU PRN ×3 (00:50→06:09)
[2021-12-10] MEDS ORDERED: Ondansetron ODT 4 mg TAB 4 MG TAB SL PRN (08:15)
[2021-12-10 11:10] VITALS: BP 118/73
== END 2021-12-10 12:30 | disposition home or self-care (01) ==
LOC: ED 15:30 → EDHOLD 15:30 → SSU 12-10 00:35
PROVIDERS: ADMIT Surgery; ATTEND Surgery

== ENCOUNTER 2022-10-23 05:42 | Inpatient (IN) ==
[~2022-10-23 05:42] MED LIST changes: -Buffered Lidocaine 1% SYRIN 1 ml INTRADERM ONE; -Famotidine IV 10 MG/ML 2 ml VIAL (20 mg) IV ONE; +Lactated Ringers 1000 ml BAG 1,000 ML IV ONE; -Lidocaine 2% PF 5 ML VIAL ONE; -Midazolam 2 mg/2 ml VIAL 1 mg/ml 2 ml VIAL (2 mg) ONE; -Propofol 10 MG/ML 20 ML BTL ONE; -Rocuronium 50 mg VIAL 10 mg/ml 5 ml VIAL (50 mg) ONE; -Scopolamine 1 mg/72hr PATCH TRANSDERM ONE; -fentaNYL 100 mcg/2 ml 50 MCG/ML VIAL ONE
[2022-10-23] MEDS ORDERED: ceFAZolin 2 GM PREMIX 2 GM/50 ML BAG IV ONE (06:00)
[2022-10-23] MEDS ORDERED: Buffered Lidocaine 1% SYRIN 1 ml INTRADERM ONE (06:00)
[2022-10-23] MEDS ORDERED: Sodium Citrate/Citric Acid LIQ 15 ML UDC PO ONE (06:00)
[2022-10-23] MEDS ORDERED: fentaNYL 100 mcg/2 ml 50 MCG/ML VIAL ONE (07:38)
[2022-10-23] MEDS ORDERED: Morphine PF AMP (0.5MG/ML) 5 MG/10 ML AMP ONE (07:38)
[2022-10-23] MEDS ORDERED: ceFOXitin 2 GM PREMIX 50 ML IVPB ONE (08:00)
[2022-10-23] MEDS ORDERED: Phenylephrine 40 mcg/mL 10mL (400mcg) SYRINGE ONE (08:22)
[2022-10-23] MEDS ORDERED: Dexamethasone IV 4 MG/ML VIAL 1 ml VIAL ONE (08:26)
[2022-10-23] MEDS ORDERED: Ondansetron 4 mg VIAL 2 MG/ML 2 ml VIAL ONE (08:26)
[2022-10-23] MEDS ORDERED: Acetaminophen IV 1 GM/100ML 1,000 MG/100 ML BAG IV ONE (09:02)
[2022-10-23] MEDS ORDERED: Oxytocin 10 UNITS/ML 1 ML VIAL ONE ×2 (09:11→09:14)
[2022-10-23 10:16] LABS: Urine Benzodiazepine Screen None Detected (None Detect); Urine Cannabinoids Screen None Detected (None Detect); Urine Opiates Screen None Detected (None Detect)
[2022-10-23] MEDS ORDERED: Metoclopramide 5 MG/ML VIAL (10 mg) IV PRN ×2 (10:27→13:22)
[2022-10-23] MEDS ORDERED: Ondansetron 4 mg VIAL 2 MG/ML 2 ml VIAL IV PRN ×2 (10:27→13:22)
[2022-10-23] MEDS ORDERED: Naloxone 0.4 mg VIAL 0.4 mg/ml 1 ml VIAL IV PUSH PRN ×2 (10:27→13:22)
[2022-10-23] MEDS ORDERED: fentaNYL 100 mcg/2 ml 50 MCG/ML VIAL IV SLOW PU PRN (10:44)
[2022-10-23] MEDS ORDERED: Glycerin ADULT 2.4 gm SUPP PR PRN (12:51)
[2022-10-23] MEDS ORDERED: Witch Hazel PAD JAR TOPICAL PRN (12:51)
[2022-10-23] MEDS ORDERED: Dibucaine 1% OINT 28.35 GM TUBE PR PRN (12:51)
[2022-10-23] MEDS ORDERED: Lactated Ringers 1000 ml BAG 1,000 ML IV SCH (13:00)
[2022-10-23] MEDS: Acetaminophen IV 1 GM/100ML 1,000 MG/100 ML BAG IV PRN (17:09)
[2022-10-23] MEDS ORDERED: RHO D Immune Globulin (HUMAN) 300 MCG = 1,500 I.U. INJ IM ONE (17:29)
[2022-10-24] MEDS: Acetaminophen IV 1 GM/100ML 1,000 MG/100 ML BAG IV PRN (02:22)
[2022-10-24 06:40] LABS: ABS Lymphocytes 2.2 10^3/uL (1.0-4.8); ABS Monocytes 0.6 10^3/uL (0.0-0.9); ABS Neutrophils 8.2 10^3/uL (1.5-7.6); ABS Nucleated RBC 0.01 10^3/ul; Eosinophil % 0.3 %; Hematocrit 30.7 % (35-45); Hemoglobin 10.6 g/dL (11.5-14.3); Lymphocyte % 20.1 %; Mean Corpuscular Hemoglobin 30.9 pg (27-33); Mean Corpuscular Hgb Conc 34.6 g/dL (31-36); Mean Corpuscular Volume 89.1 fL (80-97); Mean Platelet Volume 6.5 fL (7.5-11.2); Nucleated Red Blood Cells % 0.1 /100 WBC (0.0-0.4); Platelet Count 264 10^3/uL (150-450); Red Blood Count 3.44 10^6/uL (3.63-4.92); Red Cell Distribution Width 13.5 % (12-17)
[2022-10-24 08:10] LABS: Urine Appearance Clear; Urine Bilirubin Negative (Negative); Urine Blood Negative (Negative); Urine Color Yellow; Urine Glucose Negative (Negative); Urine Ketones Negative (Negative); Urine Nitrite Negative (Negative); Urine Protein Negative (Negative); Urine Specific Gravity 1.017 (1.002-1.030); Urine Urobilinogen Positive (Negative)
[2022-10-25] MEDS ORDERED: Ondansetron ODT 4 mg TAB 4 MG TAB PO PRN (09:00)
[2022-10-26 08:50] VITALS: BP 117/63
== END 2022-10-26 16:05 | disposition home or self-care (01) | DRG 540 ==
LOC: MCHOB 05:42
PROVIDERS: ADMIT Obstetrics & Gynecology; ATTEND Obstetrics & Gynecology